=== PATIENT | male | born 1970 | race Caucasian/White ===

== ENCOUNTER 2023-12-21 13:28 | Emergency (ER) | payer OTHER, SELFPAY ==
[2023-12-21 13:36] VITALS: BP 133/73
--- NOTE | 2023-12-21 14:49 | ED.GENMED ---
History of Present Illness
<Bryanna Fink PA-C - Last Filed: 12/21/23 23:32>
General
Chief Complaint: Dizziness
Source: patient
Exam Limitations: none
Time Seen by Provider: 12/21/23 14:14
Nursing documentation reviewed up to this point in time: agreed with
Travel History
Have you had any contact with someone who has COVID-19?: No
Do you have any symptoms of coronavirus? Fever > 100 degrees, chills, cough, shortness of breath, sore throat, loss of taste or smell, muscle aches, or headache?: No
History of Present Illness
History of Present Illness:
This is a 53-year-old male with a history of CLL, vertigo, hypothyroidism, presenting to the ER today with dizziness that started yesterday. Patient states that it started yesterday morning shortly after he woke up. Patient describes it as feeling
'drunk'. He says that when he is lying down and remaining still, he does not feel it, however symptoms come on when he turns his head or stands and ambulates. Patient states that it feels different than when he has vertigo. Patient states that his
vertigo symptoms usually resolve when he puts his head and between his knees, however this did not resolve. Patient was seen by urgent care today who advised him to report to the emergency department. Currently, patient also admits to a left-sided
headache that started when his other symptoms occurred. He also admits to some nausea, but denies vomiting. He denies any head trauma, he denies loss of his vision. He denies any sensory changes, denies any motor weakness. He states that he has
trouble walking, and feels like he will fall over when he walks. Of note, patient was recently diagnosed with CLL, and is currently being observed and treatment has not being initiated yet.
Review of Systems
<Bryanna Fink PA-C - Last Filed: 12/21/23 23:32>
Review of Systems
All Other Systems: ROS reviewed and negative except as documented in HPI and ROS
Phy Exam
<Bryanna Fink PA-C - Last Filed: 12/21/23 23:32>
Physical Exam
Physical Exam:
General: Patient is well-appearing, no acute distress
Skin: Warm and dry, no rashes or lesions
Head: Normocephalic, atraumatic
Eyes: Right beating horizontal nystagmus, no rotary component.
Cardiac: Regular rate and rhythm, no murmur
Pulm: Normal respiratory effort
Peripheral vascular: Brachial pulses 2+ and equal bilaterally.
Neurological: Patient is alert and oriented x 3. Cranial nerves II through XII intact. Positive Romberg sign. Negative pronator drift.
Course
<Bryanna Fink PA-C - Last Filed: 12/21/23 23:32>
Orders/Labs/Results
Orders:
Orders
12/21/23 14:20
Electrocardiogram (*1) Urgent
Reason for Study: Vertigo / Dizzy
12/21/23 14:21
EKG- Treatment ONCE
12/21/23 14:46
Complete Blood Count/With Diff Urgent
Comprehensive Metabolic Panel Urgent
12/21/23 15:24
MR Brain Without Contrast Urgent
Comment:
Reason For Exam: Disequilibrium/ataxia
Recent pill cam endoscopy?: No
Abnormal Lab Results
12/21/23
14:46
WBC 18.0 H 10^3/uL
(4.8-10.8)
Abs Immat Gran (auto) 0.1 H 10^3/uL
(0-0.05)
Absolute Lymphs (auto) 11.9 H 10^3/uL
(1.2-3.4)
Absolute Monos (auto) 0.7 H 10^3/uL
(0.1-0.6)
Neutrophils % 27.8 L %
(42.2-75.2)
Lymphocytes % 66.3 H %
(20.5-51.1)
Glucose 154 H mg/dl
(70-99)
12/21/23 14:46
12/21/23 14:46
Vital Signs
Initial and Last Documented VS:
Initial Vital Signs
Temp Pulse Resp BP Pulse Ox
98.1 F 69 16 133/73 98
12/21/23 13:36 12/21/23 13:36 12/21/23 13:36 12/21/23 13:36 12/21/23 13:36
Last Documented Vital Signs
Temp Pulse Resp BP Pulse Ox
98.1 F 62 13 111/69 97
12/21/23 13:36 12/21/23 18:45 12/21/23 18:45 12/21/23 18:00 12/21/23 18:45
<Aaron Gallagher MD - Last Filed: 12/21/23 16:01>
Orders/Labs/Results
Orders:
Orders
12/21/23 14:20
Electrocardiogram (*1) Urgent
Reason for Study: Vertigo / Dizzy
12/21/23 14:21
EKG- Treatment ONCE
12/21/23 14:46
Complete Blood Count/With Diff Urgent
Comprehensive Metabolic Panel Urgent
12/21/23 15:24
MR Brain Without Contrast Urgent
Comment:
Reason For Exam: Disequilibrium/ataxia
Recent pill cam endoscopy?: No
Abnormal Lab Results
12/21/23
14:46
WBC 18.0 H 10^3/uL
(4.8-10.8)
Abs Immat Gran (auto) 0.1 H 10^3/uL
(0-0.05)
Absolute Lymphs (auto) 11.9 H 10^3/uL
(1.2-3.4)
Absolute Monos (auto) 0.7 H 10^3/uL
(0.1-0.6)
Neutrophils % 27.8 L %
(42.2-75.2)
Lymphocytes % 66.3 H %
(20.5-51.1)
Glucose 154 H mg/dl
(70-99)
12/21/23 14:46
12/21/23 14:46
Vital Signs
Initial and Last Documented VS:
Initial Vital Signs
Temp Pulse Resp BP Pulse Ox
98.1 F 69 16 133/73 98
12/21/23 13:36 12/21/23 13:36 12/21/23 13:36 12/21/23 13:36 12/21/23 13:36
Last Documented Vital Signs
Temp Pulse Resp BP Pulse Ox
98.1 F 62 13 111/69 97
12/21/23 13:36 12/21/23 18:45 12/21/23 18:45 12/21/23 18:00 12/21/23 18:45
<Bryanna Fink PA-C - Last Filed: 12/21/23 23:32>
MDM/Problems Addressed
Differential Diagnosis Includes:
ddx include BPPV, posterior circulation stroke, meniere's disease, anemia, hypoglycemia, cerebellar hemorrhage, complex migraine, labyrinthitis
MDM/Problems Addressed:
dizziness
headache
Chronic conditions affecting care: Neurological disorder (vertigo), Cancer (CLL) and Other (hypothyroidism)
<Bryanna Fink PA-C - Last Filed: 12/21/23 23:32>
*Pulse Oximetry
Patient hypoxic: no
*Critical Care Note
Total Time (30-74mins, 75-104mins- exclusive of procedures): Not Applicable
Data Reviewed
Review of Other/Old Records Reveals: Records (no previous records in [facility] to review)
Source: patient and spouse
<Bryanna Fink PA-C - Last Filed: 12/21/23 23:32>
Patient Management
Discussion with other providers: [employer] (Dr. Jarquin, neurology, who suggests CTA)
Escalation/DeEscalation of care consider admission/obs:
This is a 53 y/o male presenting to the ER today with dizziness and left sided headache that started yesterday. Patient does have a hx of vertigo but he states this feels different than his typical vertigo. On exam, his vitals are stable and patient
has right beating horizontal nystagmus and a positive rhomberg. CBC reveals leukocytosis consistent with patient's new CLL diagnosis. CMP unremarkable. Spoke with Dr. Gallagher who also evaluated patient, recommended MRI imagining of the brain. MRI
imaging revealed no evidence for acute infarct or intracerebral hemorrhage. Patient still experiencing some dizziness, likely related to his history of vertigo.
We will send patient home with a few meclizine tablets considering patient's considering his symptoms have been persistent since yesterday. Patient does take abilify which has potential interaction with meclizine, reviewed anti-cholinergic toxidrome
with patient and advised to stop the medication should he experience those symptoms. Discussed vestibular therapy with patient, gave info sheet. Patient stable for discharge.
ED Attending Note
<Bryanna Fink PA-C - Last Filed: 12/21/23 23:32>
-
Portions of this chart may have been created with voice recognition software.� Occasional wrong word or��sound alike� substitutions may have occurred due to the inherent limitations of voice recognition software.
<Aaron Gallagher MD - Last Filed: 12/21/23 16:01>
ED Attending Note
Patient seen and examined by attending physician: Yes
I performed the substantive portion of visit, reviewed & personally made and approve the management plan that is documented in note by myself or FACUNDO.: Yes
ED Attending Note:
Patient presents with disequilibrium that started yesterday morning. Somewhat positional although definitely feels different than his typical vertigo. Mild headache also. No other neurologic symptoms. Able to ambulate but feels slightly wobbly.
On exam patient is nontoxic in no distress. No obvious nystagmus. Extraocular muscles intact. Speech is normal. Cranial nerves II through XII are normal. [id number] is normal. No drift. Light touch intact. Lower extremities are normal.
Disequilibrium of unknown etiology workup in progress. Suspect elevated white count is chronic from his new CLL diagnosis. MRI is the definitive test for either more serious central etiology or peripheral
Discharge Plan
Departure
Patient Disposition: Home (Routine Discharge)
Date of Disposition: 12/21/23
Time of Disposition: 18:35
Patient with high blood pressure during this ER visit?: Yes
Condition: Good
Discharge Problem:
Vertigo, Dizziness
Instructions: Vertigo (a Type of Dizziness) (DC), Dizziness, BLOOD PRESSURE
Prescriptions:
New
meclizine [Antivert] 50 mg tablet
50 mg PO BID PRN (Reason: dizziness) Qty: 10 0RF
Referrals:
Meli Falcon, DO [Family Provider] -
Stand Alone Forms: Return to Work
Activity Restrictions/Additional Instructions:
We have sent a medication called meclizine to your pharmacy. You can take 1 tablet every 12 hours as needed for dizziness. This medication may make you a bit drowsy when combined with your psychiatric medications. PLEASE STOP taking this medication
if you experience excessive drowsiness or blurred vision, dry mouth, flushing, abdominal cramping, difficulty urinating, or memory problems.
Please call [phone] to schedule an appointment for vestibular therapy.
Please follow up with your primary care provider.
Please return for any concerns.
Interventions
Interventions:
*Risk Screen - Suicide Last Done: 12/21/23 13:36
*General Assessment Last Done: 12/21/23 13:36
*Neglect/Abuse Screening Last Done: 12/21/23 13:36
*Nursing Disposition Last Done: 12/21/23 19:09
ED- Neurological Assessment Last Done: 12/21/23 14:43
ED- Cardiac Assessment Last Done: 12/21/23 19:09
ED Swallowing Screen Last Done: 12/21/23 19:06
Discharge Date and Time
Discharge Date/Time: 12/21/23 19:10
[2023-12-21 15:01] LABS: % Basophils 0.4 % (0-2); % Eosinophils 1.5 % (0-6); % Immature Granulocytes 0.3 % (0-0.5); % Lymphocytes 66.3 % (20.5-51.1); % Monocytes 3.7 % (1.7-9.3); % Neutrophils 27.8 % (42.2-75.2); Absolute Basophils 0.1 10^3/uL (0-0.2); Absolute Eosinophils 0.3 10^3/uL (0-0.7); Absolute Immature Granulocytes 0.1 10^3/uL (0-0.05); Absolute Lymphocytes 11.9 10^3/uL (1.2-3.4); Absolute Monocytes 0.7 10^3/uL (0.1-0.6); Hematocrit 43.6 % (39.0-52.0); Hemoglobin 15.6 g/dL (13.0-18.0); Mean Corp Hgb Conc. 35.8 g/dL (33.0-37.0); Mean Corpuscular Hgb 30.8 pg (27.0-31.0); Mean Corpuscular Volume 86.2 fL (80.0-94.0); Mean Platelet Volume 8.6 fL (7.4-10.4); Nucleated Red Blood Cells % 0.2 % (-); Platelet Count 170 10^3/uL (130-400); Red Blood Cell Count 5.06 10^6/uL (4.70-6.10); Red Cell Dist. Width 12.7 % (11.5-14.5)
[2023-12-21 15:11] VITALS: BP 113/65
[2023-12-21 15:15] LABS: ALT (SGPT) 28 U/L (0-50); AST (SGOT) 25 U/L (17-59); Albumin 3.9 g/dl (3.5-5.0); Alkaline Phosphatase 111 U/L (38-126); Blood Urea Nitrogen 18 mg/dl (9-20); Calcium 9.2 mg/dl (8.4-10.2); Carbon Dioxide 26 mmol/L (22-30); Chloride 103 mmol/L (98-107); Glucose 154 mg/dl (70-99); Potassium 3.9 mmol/L (3.5-5.1); Sodium 138 mmol/L (135-145); Total Bilirubin 0.8 mg/dl (0.2-1.3); Total Protein 6.3 g/dl (6.3-8.2); eGFR > 60.00
[2023-12-21 16:00] VITALS: BP 112/65
[2023-12-21 17:48] VITALS: BP 113/77
[2023-12-21 18:00] VITALS: BP 111/69
== END 2023-12-21 19:10 | disposition home or self-care (01) ==
LOC: EMR 13:28
PROVIDERS: Physician Assistant; EMERGENCY PHYSICIAN Emergency Medicine; FAMILY PHYSICIAN Family Medicine
DX: R42 Dizziness and giddiness (principal); C91.10 Chronic lymphocytic leukemia of B-cell type not having achieved remission; E03.9 Hypothyroidism, unspecified
CPT/HCPCS: 99284; 70551; 80053; 85025; 93005